=== PATIENT | male | born 1975 | race Caucasian/White ===

== ENCOUNTER 2019-10-14 12:52 | Emergency (ER) | payer SELFPAY ==
[2019-10-14 12:58] VITALS: Wt 79.5 kg
[2019-10-14] MEDS ORDERED: VISTARIL25 MG PO (15:39)
[2019-10-14 15:46] VITALS: BP 148/82
== END 2019-10-14 15:48 | disposition home or self-care (01) ==
LOC: D.ER 12:52
DX: R51 Headache (principal); S02.2XXA Fracture of nasal bones, initial encounter for closed fracture; W19.XXXA Unspecified fall, initial encounter; Y93.9 Activity, unspecified; Y92.9 Unspecified place or not applicable